=== PATIENT | male | born 1995 | race Two or more races ===

== ENCOUNTER 2022-10-22 06:25 | Emergency (ER) | payer SELFPAY ==
[2022-10-22] MEDS ORDERED: Ketorolac Tromethamine 30 MG/ML VIAL ONE (06:55)
[2022-10-22] MEDS ORDERED: Budesonide 0.5 MG/2 ML NEB ONE (08:43)
[2022-10-23] MEDS ORDERED: Octreotide Acetate 100 MCG/ML VIAL ONE (03:02)
== END 2022-10-22 07:45 | disposition home or self-care (01) ==
LOC: ERS 06:25
DX: S93.401A Sprain of unspecified ligament of right ankle, initial encounter (principal); W18.30XA Fall on same level, unspecified, initial encounter
CPT/HCPCS: 96372; J1885; J7626